=== PATIENT | female | born 1965 ===

== ENCOUNTER 2020-11-25 11:54 | Inpatient (IN) | payer OTHER ==
[~2020-11-25] VITALS: Ht 149.9 cm; Wt 63.5 kg
[~2020-11-25 11:54] MED LIST: GLUCOPHAGE XR500 MG; PNEU16DI2; VASOTEC10 MG
--- NOTE | 2020-11-25 12:24 | NUR ---
SE REDIBE PTE ALERTA Y ORIENTADA X3,REFIERE HABERSE TOMADO UN TE LE LORENA CIRILO REACCION ALERGICA EN LA CAR ,BOCA ,PIEL ENROJECIDA ,SE SIENT ASFICIADA LA REFIERE BEAL MEDICO DE CABECERA .
--- NOTE | 2020-11-25 16:04 | NUR ---
SE EDUCA APTE SOBRE [place] MEDICO ESTA REFIERE ENTENDER. SE LEROY MUESTRAS DE LABORATORIO UTILIZANDO MEDIDAS ASEPTICAS. SE COLOCA H/L EL CUAL SE ENCUENTRA PATENTE. SE ADMINISTRAN MEDICAMENTOS A PTE LOS CUALES TOLERA.
[2020-12-08] MEDS ORDERED: SILVER SULFADIA50 GM TOP (09:09)
[2020-12-08] MEDS ORDERED: HYDROCORTISO453.6 GM TOP (09:09)
[2020-12-08] MEDS ORDERED: TRIAMCINOLONE AC5 GM DT (09:09)
[2020-12-08] MEDS ORDERED: ZYRTEC10 MG PO (09:09)
[2020-12-08] MEDS ORDERED: Lantus 1000 UNITS/10 SUBCUTANEO (09:09)
[2020-12-08] MEDS ORDERED: AKWA TEARS OP (09:09)
[2020-12-08] MEDS ORDERED: PROTONIX40 MG PO (09:09)
[2020-12-08] MEDS ORDERED: MAGIC MOUTH WASH PO (09:09)
[2020-12-08] MEDS ORDERED: PEPCID AC20 MG PO (09:09)
[2020-12-08] MEDS ORDERED: AQUAPHOR WITH N50 GM TOP (09:09)
[2020-12-08] MEDS ORDERED: TRIAMCINOLONE A15 G3 TOP (09:09)
== END 2020-12-08 10:35 | disposition home or self-care (01) | DRG 596 ==
LOC: ER 11:54 → SEC-K 20:20 → SURH 20:20
PROVIDERS: ADMIT Internal Medicine; ATTEND Internal Medicine
DX: L51.1 Stevens-Johnson syndrome (principal); H10.229 Pseudomembranous conjunctivitis, unspecified eye; E11.65 Type 2 diabetes mellitus with hyperglycemia; I10 Essential (primary) hypertension